=== PATIENT | male | born 1975 | race Caucasian/White ===

== ENCOUNTER 2024-01-15 07:17 | Emergency (ER) | payer MEDICAID ==
[~2024-01-15] VITALS: Ht 165.1 cm; Wt 70.0 kg
[2024-01-15 07:20] VITALS: O2SAT 100
[2024-01-15] MEDS ORDERED: IBUPROFEN 800MG TABLET PO ONE (08:00)
[2024-01-15 08:37] VITALS: BP 124/86; PULSE 83; RESP 18; TEMP 98.3
[2024-01-15] MEDS: IBUPROFEN 400MG TABLET PO NR (08:37)
[2024-01-15] MEDS: ACETAMINOPHEN 325MG TABLET PO ONE (08:37)
[2024-01-15] MEDS ORDERED: IBUP-1523 MT (09:37)
[2024-01-15] MEDS ORDERED: TOPUD MT (09:37)
== END 2024-01-15 09:50 | disposition home or self-care (01) ==
LOC: ER 08:11
DX: S06.0X0A Concussion without loss of consciousness, initial encounter (principal); Y04.0XXA Assault by unarmed brawl or fight, initial encounter; Y93.89 Activity, other specified; Y92.89 Other specified places as the place of occurrence of the external cause; Y99.8 Other external cause status
CPT/HCPCS: 99284